=== PATIENT | male | born 1935 | race Two or more races ===

== ENCOUNTER 2019-04-29 21:45 | Emergency (ER) | payer OTHER ==
[~2019-04-29] VITALS: Ht 170.2 cm; Wt 90.7 kg
--- NOTE | 2019-04-29 22:05 | NUR ---
PT AAOX1. BIBRA C/O ALOC. PT RESPONSIVE TO STERNAL RUB. PER RA PT WAS GIVEN NARCAN 2MG OTW TO SOH. PLACED ON MONITOR AND PULSE OX. AT BEDSIDE.
[2019-04-29] MEDS ORDERED: CEFTRIAXONE 1GM BAG (ER ONLY) 50 ML IV ONE ×2 (22:16→22:30)
[2019-04-29] MEDS ORDERED: LIDOCAINE 2% JEL UROJET 10 ML MM ONE ×2 (22:18→22:30)
--- NOTE | 2019-04-29 22:21 | NUR ---
CAMPAIGN MARKETING SPECIALIST AT BEDSIDE FOR BLOOD COLLECTION
--- NOTE | 2019-04-29 22:28 | NUR ---
RADIOLOGY AT BEDSIDE FOR XRAY
[2019-04-29] MEDS ORDERED: IV NS 0.9% 1,000 ML BAG IV ONE (22:30)
[2019-04-29 22:34] LABS: BASOPHILS # (AUTO) 0.1 /CMM (0.0-0.2); BASOPHILS % (AUTO) 0.4 % (0.0-2.0); EOSINOPHILS % (AUTO) 0.9 % (0.0-6.0); HEMATOCRIT 42 % (39-51); HEMOGLOBIN 14.2 g/dL (13.5-17.5); LYMPHOCYTES % (AUTO) 5.1 % (20.0-44.0); MEAN CORPUSCULAR HGB CONC 33 g/dl (31.0-36.0); MEAN CORPUSCULAR VOLUME 91 fL (80-96); MONOCYTES # (AUTO) 1.5 /CMM (0.1-1.30); MONOCYTES % (AUTO) 7.9 % (2.0-12.0); NEUTROPHILS % (AUTO) 85.7 % (43.0-81.0); PLATELET COUNT (AUTO) 359 /CMM (150-450); RED BLOOD CELL COUNT(AUTO) 4.66 MIL/uL (4.5-6.0); WHITE BLOOD COUNT (AUTO) 18.7 K/uL (4.3-11.0)
[2019-04-29 22:39] LABS: ABG BASE EXCESS -3.3 mmol/L; ABG OXYGEN SATURATION 95.5 % (92.0-98.5); ABG PCO2 39.3 mmHg (35.0-45.0); ABG PH 7.361 (7.350-7.450); ABG PO2 90.4 mmHg (75.0-100.0); AaDO2 62.9 mmHg; COHb 1.1 % (0.5-1.5); MetHb 0.3 % (0.0-1.5); O2Hb 94.2 % (94.0-97.0); SITE, ABG Left Radial; VENT MODE, BG Nasal Cannula
--- NOTE | 2019-04-29 22:40 | NUR ---
Wang (pts son)
[2019-04-29 22:45] LABS: CALCIUM, SERUM 9.1 mg/dL (8.5-10.1); CARBON DIOXIDE 28 mmol/L (21-32); CHLORIDE 105 mmol/L (98-107); CREATININE 1.5 mg/dL (0.6-1.3); GLUCOSE 143 mg/dL (74-106); POTASSIUM 4.1 mmol/L (3.5-5.1); SODIUM SERUM 142 mmol/L (136-145); UREA NITROGEN, BLOOD 29 mg/dL (7-18)
--- NOTE | 2019-04-29 22:50 | NUR ---
PT SAT 85 PT PLACED ON MASK SINCE HE IS A MOUTH BREATHER. SAT 95 NOW
[2019-04-29 22:57] LABS: ALANINE AMINOTRANSFERASE 19 U/L (12-78); ALBUMIN 3.3 g/dL (3.4-5.0); ALKALINE PHOSPHATASE 73 U/L (46-116); ASPARTATE AMINOTRANSFERASE 21 U/L (15-37); B-TYPE NATRIURETIC PEPTIDE 662 PG/ML (0-125); BILIRUBIN,DIRECT 0.2 mg/dL (0.0-0.2); BILIRUBIN,TOTAL 0.8 mg/dL (0.2-1.0); TOTAL PROTEIN, SERUM 7.3 g/dL (6.4-8.2)
--- NOTE | 2019-04-29 23:14 | NUR ---
PT BROUGHT TO CT.
--- NOTE | 2019-04-29 23:25 | NUR ---
PT BROUGHT BACK FROM CT.
--- NOTE | 2019-04-30 00:57 | NUR ---
Urine collected and sent to lab
[2019-04-30 01:11] LABS: APPEARANCE,URINE Slightly Cloudy (CLEAR); BILIRUBIN,URINE SMALL (NEGATIVE); BLOOD, URINE Large Ery/uL (NEGATIVE); COLOR,URINE Yellow (YELLOW); KETONES,URINE Negative (NEGATIVE); LEUKOCYTE ESTERASE ,URINE Negative (NEGATIVE); NITRITE, URINE Negative (NEGATIVE); PROTEIN,URINE 30 mg/dl (NEGATIVE); UGLUCOSE Negative (NEGATIVE); UROBILINOGEN,URINE 0.2 EU/dL (0.2)
[2019-04-30 01:26] LABS: BACTERIA,URINE Few /HPF (None Seen); RBC,URINE TOO NUMEROUS TO COUN /HPF (0-2); SQUAMOUS EPITHELIAL CELL,UR Rare /HPF (None Seen)
--- NOTE | 2019-04-30 01:52 | NUR ---
CALLED [facility]
--- NOTE | 2019-04-30 02:00 | NUR ---
DR. COWART ON THE PHONE WITH [facility], DR. MURRY
[2019-04-30 02:16] VITALS: BP 121/61
--- NOTE | 2019-04-30 02:18 | NUR ---
Patient is resting comfortably in bed with eyes closed. Easily aroused. VSS.
--- NOTE | 2019-04-30 02:28 | NUR ---
TRANSFER INFORMATION PT IS GOING TO [facility] ER ACCEPTING MD: DR CAMPBELL NUMBER FOR REPORT: AMBULANCE ETA: [id number]
--- NOTE | 2019-04-30 03:01 | NUR ---
CALLED [facility] TO GIVE REPORT KEPT ON HOLD WILL CALL BACK IN 5 MINUTES.
--- NOTE | 2019-04-30 03:15 | NUR ---
TRANSFER AT BEDSIDE. REPORT GIVEN.
--- NOTE | 2019-04-30 03:22 | NUR ---
REPORT GIVEN TO ARTURO RIVAS FOR JOHAN FROM [facility].
--- NOTE | 2019-04-30 03:36 | NUR ---
PT TRANSFERED TO [facility]. SON CALLED.
== END 2019-04-30 03:30 | disposition short-term general hospital (02) ==
LOC: ER 21:47
DX: R41.0 Disorientation, unspecified (principal); D72.829 Elevated white blood cell count, unspecified; G30.9 Alzheimer's disease, unspecified; F02.80 Dementia in other diseases classified elsewhere, unspecified severity, without behavioral disturbance, psychotic disturbance, mood disturbance, and anxiety; K21.9 Gastro-esophageal reflux disease without esophagitis; F32.9 Major depressive disorder, single episode, unspecified; Z98.890 Other specified postprocedural states
CPT/HCPCS: 36415; 36600 ×2; 70450; 71045; 80048; 80076; 81001; 82803; 83605; 83880; 84145; 84484; 85025; 85730; 87040 ×2; 87086; 87804 ×2; 93005; 96365; 99285; J0696; J3490; J7030; 81000-TC